=== PATIENT | male | born 2000 | race Two or more races ===

== ENCOUNTER 2024-06-15 10:58 | Emergency (ER) | payer MEDICAID, OTHER ==
[~2024-06-15] VITALS: Ht 172.7 cm; Wt 105.0 kg
[2024-06-15 12:18] VITALS: BP 153/92; PULSE 110; RESP 18; TEMP 97.8; O2SAT 97
[2024-06-15 12:27] LABS: Urine Bacteria None Seen /hpf (None Seen); Urine WBC None Seen /hpf (0 - 3)
[2024-06-15 12:44] LABS: Basophils # (auto) 0 10 ^3/uL (0-0.2); Basophils % (auto) 0.4 % (0.0-2.0); Eosinophils # (auto) 0.1 10 ^3/uL (0-0.8); Hematocrit 50.4 % (41.0-53.0); Hemoglobin 16.3 g/dL (13.5-17.5); Lymphocytes # (auto) 1.6 10 ^3/uL (0.4-5.4); Lymphocytes % (auto) 24.3 % (10.0-50.0); Mean Corpuscular Hemoglobin 27.4 pg (28.0-32.0); Mean Corpuscular Hgb Conc. 32.5 g/dL (32.0-36.0); Mean Corpuscular Volume 84.4 fL (80.0-100.0); Monocytes # (auto) 0.9 10 ^3/uL (0-1.3); Monocytes % (auto) 13.8 % (0.0-12.0); Neutrophils # (auto) 3.9 10 ^3/uL (1.6-8.6); Neutrophils % (auto) 59.5 % (37.0-80.0); Platelet Count (auto) 260 10^3/uL (140-450); Red Blood Cells 5.96 10^6/uL (4.5-5.90); Red Cell Distribution Width 15.3 % (11.8-14.3); White Blood Cell 6.5 10^3/uL (4.4-10.8)
[2024-06-15 12:45] LABS: Urine Blood Negative /uL (Negative); Urine Budding Yeast OCCASIONAL /hpf (None Seen); Urine Clarity Clear (Clear); Urine Color Yellow (Yellow); Urine Mucus FEW (None Seen); Urine Protein, UAD 1+ (Negative); Urine Urobilinogen Normal (Negative)
[2024-06-15 13:01] LABS: Chloride 106 mmol/L (98-107); Sodium 139 mmol/L (136-145)
[2024-06-15 13:02] LABS: Anion Gap 9 (5-15); Carbon Dioxide 24 mmol/L (20-31)
[2024-06-15 13:03] LABS: Calcium 10.4 mg/dL (8.7-10.4)
[2024-06-15 13:06] LABS: Amphetamine Screen, Urine Neg (NEGATIVE); Barbiturate Scree,Urine Neg (NEGATIVE); Benzodiazephine Screen, Urine Neg (NEGATIVE); Cocaine Screen, Urine Neg (NEGATIVE)
[2024-06-15 13:07] LABS: BUN/Creatinine Ratio 6.4 (10.0-20.0); Blood Urea Nitrogen 7 mg/dL (9-23); Glucose 96 mg/dL (74-106)
[2024-06-15 13:08] LABS: Cannabinoid Screen, Urine Pos (NEGATIVE); Opiate Scree,Urine Neg (NEGATIVE); Phencyclidine Screen, Urine Neg (NEGATIVE)
[2024-06-15] MEDS ORDERED: IBUP-1455 PO (13:45)
[2024-06-15] MEDS ORDERED: AUG875T PO (13:45)
[2024-06-15] MEDS ORDERED: CHL12OR MT (13:47)
[2024-06-15] MEDS: cefTRIAXone SOD 1,000 MG VL IM ONE (13:50)
== END 2024-06-15 14:41 | disposition left against medical advice (07) ==
LOC: ER 10:58
DX: S01.511A Laceration without foreign body of lip, initial encounter (principal); L08.9 Local infection of the skin and subcutaneous tissue, unspecified; S02.40DD Maxillary fracture, left side, subsequent encounter for fracture with routine healing; Z79.899 Other long term (current) drug therapy; Y04.2XXD Assault by strike against or bumped into by another person, subsequent encounter
CPT/HCPCS: 36415; 70450; 70486; 73110; 80048; 80307; 81001; 85025; 96372; 99285; J0696